=== PATIENT | female | born 1985 | race Caucasian/White ===

== ENCOUNTER 2016-11-07 05:15 | Day surgery (SDC) | payer OTHER ==
[~2016-11-07] VITALS: Ht 163.8 cm; Wt 118.1 kg
[~2016-11-07 05:15] MED LIST: AMOXICILLIN500 M1 PO; CARAFATE100 MG/ML PO; CLARITIN10 M3 PO; LORTAB 5-325 M1 EACH PO; MACROBID100 MG PO; MOTRIN800 MG PO; NAPROSYN500 MG PO; NOHOMEMEDS; PEPCID40 MG PO; PERCOCET 5/31 TABLET PO; PREDNISONE20 MG PO; ZOFRAN ODT4 MG PO
[2016-11-07 06:16] VITALS: BP 125/68
[2016-11-07 07:34] LABS: METH RESISTANT S AUREUS PCR NEGATIVE (NEGATIVE)
[2016-11-07 07:35] LABS: PROBE CHECK PASS; SPECIMEN PROCESSING CONTROL PASS
[2016-11-07] MEDS ORDERED: NORCO 5/3251 TABLET PO (08:32)
[2016-11-07 10:03] VITALS: BP 108/52
[2016-11-07 11:05] VITALS: BP 122/79
[2016-11-07 14:47] LABS: INTERNAL CONTROL VALID? YES
== END 2016-11-07 11:23 | disposition home or self-care (01) ==
LOC: SDC 05:15
PROVIDERS: Surgery
PROC: 0FT44ZZ Resection of Gallbladder, Percutaneous Endoscopic Approach (ICD-10-PCS; principal; 2016-11-07)
DX: K80.10 Calculus of gallbladder with chronic cholecystitis without obstruction (principal); L30.9 Dermatitis, unspecified; Z86.14 Personal history of Methicillin resistant Staphylococcus aureus infection; Z87.891 Personal history of nicotine dependence; Z98.51 Tubal ligation status; Z82.49 Family history of ischemic heart disease and other diseases of the circulatory system; Z80.1 Family history of malignant neoplasm of trachea, bronchus and lung
CPT/HCPCS: 84703; 87641; 88304; J1170; J1885; J2250; J2405; J2710; J3010

== ENCOUNTER 2017-11-02 15:04 | Emergency (ER) | payer OTHER ==
[~2017-11-02] VITALS: Ht 167.6 cm; Wt 117.1 kg
[~2017-11-02 15:04] MED LIST changes: +NORCO 5/3251 TABLET PO
[2017-11-02 16:02] LABS: APPEARANCE CLEAR ((CLEAR)); BILIRUBIN NEGATIVE; BLOOD SMALL; COLOR YELLOW ((YELLOW)); GLUCOSE (STRIP) NEGATIVE; KETONES NEGATIVE; LEUKOCYTES MODERATE; NITRITE POSITIVE; PROTEIN (STRIP) 30; SPECIFIC GRAVITY 1.023 (1.000-1.030); UROBILINOGEN 0.2 MG/DL (0.2-1.0)
[2017-11-02 16:16] LABS: BACTERIA RARE /HPF; EPITHELIAL CELLS 1+ /HPF; MUCUS TRACE /LPF; UCUL ADDED? YES; WHITE BLOOD CELLS TNTC /HPF (0-5)
[2017-11-02] MEDS ORDERED: KEFLEX500 MG PO (16:27)
[2017-11-02] MEDS ORDERED: PYRIDIUM200 MG PO (16:27)
[2017-11-02 16:44] VITALS: BP 110/65
== END 2017-11-02 16:45 | disposition home or self-care (01) ==
LOC: EME 15:04
PROVIDERS: Nurse Practitioner Family
DX: N39.0 Urinary tract infection, site not specified (principal); K21.9 Gastro-esophageal reflux disease without esophagitis; Z87.440 Personal history of urinary (tract) infections; Z87.891 Personal history of nicotine dependence; Z90.49 Acquired absence of other specified parts of digestive tract
CPT/HCPCS: 81003; 81025; 87086; 99281; 99283